=== PATIENT | female | born 1950 | race Two or more races ===

== ENCOUNTER 2023-06-01 05:49 | Day surgery (SDC) | payer OTHER ==
[~2023-06-01 05:49] MED LIST: ADVA IH; ALBUTE IH; ATORVASTATIN CA40 MG PO; AVAPRO300 MG PO; FLONASE16 GM IH; PREDISONE PO; ZYRTEC10 M3 PO
[2023-06-01] MEDS ORDERED: TRAM1TAB98 PO (11:15)
[2023-06-01] MEDS ORDERED: MACROBID 100 M100 MG PO (11:15)
== END 2023-06-01 15:25 | disposition home or self-care (01) ==
LOC: CIR.AMB 05:49
PROVIDERS: ATTEND Obstetrics & Gynecology Gynecology
DX: N81.11 Cystocele, midline (principal); N81.6 Rectocele; N81.5 Vaginal enterocele; Z20.822 Contact with and (suspected) exposure to COVID-19